=== PATIENT | male | born 1955 | race Caucasian/White ===

== ENCOUNTER 2023-12-21 14:55 | Emergency (ER) | payer MEDICARE, SELFPAY ==
--- NOTE | ~2023-12-21 | XR_ITS ---
EXAMINATION: XR wrist RT 2V DATE: 12/21/2023 15:05 INDICATION: Right wrist injury. Fall. TECHNIQUE: 2 views of right wrist were obtained. COMPARISON: None. FINDINGS: There is a comminuted fracture of distal radius with involvement of the distal articular grigsby rface and distal radioulnar joint. The main distal fracture fragment demonstrates impaction and dorsa l angulation. There is 11 degrees dorsal tilt of the distal articular surface. Ulnar styloid is intac t. There is severe osteoarthritis of triscaphe joint and first carpometacarpal joint. IMPRESSION: 1. Comminuted fracture of distal radius. 2. Polyarticular osteoarthritis. Reviewed, dictated and finalized at location A.
[2023-12-21 14:56] VITALS: BP 150/102; PULSE 93; RESP 16; TEMP 36.6; O2SAT 98
[2023-12-21] MEDS: HYDROcodone/acetaminophen (*CRX) 5-325 MG TABLET 1 TAB PO (15:57)
--- NOTE | 2023-12-21 16:22 | ED.FALL ---
HPI - Fall General Chief Complaint: Fall Stated Complaint: wrist injury Time Seen by Provider: 12/21/23 15:20 History of Present Illness HPI Narrative: Patient is a healthy 68-year-old male with no medical history here today after a fall with right wrist pain. He is right-hand dominant. He states that just prior to arrival he was on a stepstool, on the 2nd step when he slipped and fell backwards, falling on his outstretched right wrist to brace his fall. He denies any additional injuries. He noted immediate pain to his right wrist with pain with movement. He does note prior surgeries for thumb pain bilaterally which performed at [facility] several years ago. No prior fractures in this wrist. He did not take any medications prior to arrival. Denies any numbness in the hand. Related Data Allergies Allergy/AdvReac Type Severity Reaction Status Date / Time No Known Allergies Allergy Unverified 11/28/18 10:04 Review of Systems Review of Systems: All systems reviewed & are unremarkable except as noted in HPI and below Exam Narrative: GENERAL: Well-appearing, well-nourished, and in no acute distress. HEAD: Normocephalic, atraumatic. EYES: PERRLA and EOMI. ENT: Nares clear. Mucous membranes moist. NECK: Supple. CHEST: Clear to auscultation. No respiratory distress. HEART: Regular rate and rhythm. Normal peripheral pulses. ABDOMEN: Soft, nontender, nondistended. EXTREMITIES: Right shoulder atraumatic, right humerus atraumatic, right elbow nontender with normal range of motion. No tenderness throughout the forearm on the right side. Tenderness over the medial aspect of the right radius with edema both anteriorly and posteriorly. No obvious deformity. Normal radial pulse. Hand nontender with normal range of motion, normal capillary refill and normal sensation. SKIN: Warm, dry, no rash. NEURO: No focal deficits. Alert and oriented x3. PSYCH: Normal mood and affect. Course Course Emergency Course: Chart review performed, patient here with wrist pain after a fall. X-rays reviewed, comminuted distal radius fracture appreciated, images reviewed by myself, minimal displacement. Patient seen evaluated, nontoxic appearing, no tenting, neurovascularly intact. Minimally displaced distal radius fracture. Will place instructor tong splint, patient given dose of [place] here in the department. I did offer him pain medication however he already has Percocet at home from a dental procedure 2 weeks ago and will use this as prescribed. He prefers to follow-up with his established hand/ wrist surgeon at [facility], will give him on-call orthopedic surgery follow-up as well should he need it. Patient has unchanged neurovascular exam after splint application. The results of pertinent diagnostic studies and exam findings were discussed. The patient?s provisional diagnosis and plan of care were discussed with the patient and present family. The patient and/or present family expressed understanding of the diagnosis and plan. The nurse was instructed to provide written instructions and appropriate follow-up information. The patient understands their need and responsibility to obtain additional follow-up as instructed. The risks of medications administered and prescribed were discussed with the patient and family present. Vital Signs Vital signs: Vital Signs Temperature 97.8 F 12/21/23 14:56 Pulse Rate 93 12/21/23 14:56 Respiratory Rate 16 12/21/23 14:56 Blood Pressure 150/102 H 12/21/23 14:56 Pulse Oximetry 98 12/21/23 14:56 Temperature 97.8 F 12/21/23 14:56 Pulse Rate 93 12/21/23 14:56 Respiratory Rate 16 12/21/23 14:56 Blood Pressure 150/102 H 12/21/23 14:56 Pulse Oximetry 98 12/21/23 14:56 MDM - Fall Imaging Data Radiologist's impression: ITS Impressions Wrist X-Ray 12/21/23 15:27 IMPRESSION: 1. Comminuted fracture of distal radius. 2. Polyarticular osteoarthritis.
== END 2023-12-21 17:10 | disposition home or self-care (01) ==
PROVIDERS: Emergency Provider Student in an Organized Health Care Education/Training Program; PCP Registered Nurse
DX: S52.501A Unspecified fracture of the lower end of right radius, initial encounter for closed fracture (principal); W18.30XA Fall on same level, unspecified, initial encounter
CPT/HCPCS: 29125; 73100; 99284; A4565; A9270

== ENCOUNTER 2023-12-26 00:17 | Day surgery (SDC) | payer MEDICARE, SELFPAY ==
--- NOTE | 2023-12-25 10:28 | PC.NURSE ---
Report to the Outpatient Waiting Room, entrance under the green pavilion located off [facility], at time __0700 on date __12/26/23 . Planned Procedure Time: __0900 . Time changes happen often and if your time is changed the preop area will call you the afternoon before. - You and your visitor will be asked to self-screen and do not enter if you have any COVID symptoms. - A mask is optional within the hospital at this time. Patients may have clear liquids (water, carbonated beverages, clear teas, apple juice) until 3 hours prior to surgery( 0600) with a maximum of 20 ounces. - No food from midnight until time of surgery - Infants may have breast milk until 4 hours before surgery, formula 6 hours prior to surgery. - Children will be allowed to drink immediately following surgery. If applicable, please bring a bottle or sippy cup to assist with drinking. Juice, water, soda, and popsicles are readily available. For infants on formula, please bring formula the day of surgery. Pacifiers are allowed. Take the following medications with a SIP of water the morning of surgery: NONE DO NOT STOP ANY OF YOUR OTHER PRESCRIPTION MEDICATIONS PRIOR TO SURGERY ?EXCEPT THE FOLLOWING Medications to discontinue per physician NONE-SURGERY TOMORROW Date to take last dose Please no make-up, nail jordanian, hairspray, perfume, deodorant, or body powder the day of surgery. No jewelry (including any body piercings) or valuables the day of surgery, leave them at home. Please take a shower or bath the night before, or the morning of, surgery with an antibacterial soap. Wear comfortable, loose fitting clothing. Children are encouraged to wear pajamas. - Jewelry must be removed prior to entering the operating room. Rings and piercings that are not removed may be cut off. - The hospital will not accept responsibility for valuables. - Please leave all valuables, including medications, at home the day of surgery. If you are going home after surgery, a licensed sulky driver must drive you home. - NO public transportation without another adult if you receive anesthesia. - We recommend that an adult stay with you for 24 hours following discharge. - We also recommend that you do not drive, make important decision, drink alcoholic beverages, or take any drugs that were not prescribed by your health care provider for at least 24 hours after your discharge time. Follow any additional instructions given to you from your surgeon. If you or anyone in your household have experienced Covid symptoms in the past week, please notify your surgeon or the nurse liaison at the phone number below for possible testing. Telephone instructions given to __PT and asked if any additional questions and then verbalized understanding. Patient advised to call surgeon office or pre surgery nurse liaison [phone] if any additional questions.
[2023-12-25 10:32] VITALS: BMI 29.0
[2023-12-26] VITALS (8 sets, daily range): BP systolic 125–164; BP diastolic 66–88; PULSE 70–90; RESP 12–20; TEMP 36.2–36.3; O2SAT 94–99; BMI 31.1
--- NOTE | ~2023-12-26 | XR_ITS ---
EXAMINATION: XR surgery orthopedic DATE: 12/26/2023 08:58 INDICATION: Distal right radius fracture. TECHNIQUE: 6 intraoperative fluoroscopic views of right wrist were obtained. I was not present. Fluor oscopy exposure time was 11 seconds. COMPARISON: Right wrist radiographs 12/24/2023 FINDINGS: There is a comminuted fracture of distal radius status post open reduction internal fixatio n with volar plate and screws. The distal articular surface demonstrates 3 degrees dorsal angulation. There is mild osteoarthritis of triscaphe joint and first carpometacarpal joint. IMPRESSION: 1. Comminuted fracture of distal radius status post open reduction internal fixation. Reviewed, dictated and finalized at location A. IMPRESSION: 1. Comminuted fracture of distal radius status post open reduction internal fix ation.
--- NOTE | 2023-12-26 07:23 | WPDHPUPDATE1 ---
History and Physical Update Update Date/Time: 12/26/23 07:23 History and Physical has been reviewed, including an updated exam of the patient. There are NO changes in the patient's condition. Risks, benefits, and alternatives have been discussed and questions answered. Patient agrees to proceed with procedure.
[2023-12-26] MEDS: LACTATED RINGERS 1,000 ML 30 ML IV CONT ×2 (07:35→09:18)
--- NOTE | 2023-12-26 07:46 | ECG_ITS ---
Measurements Intervals [place] Rate: 72 P: 27 CA: 172 QRS: 12 QRSD: 93 T: 19 QT: 386 QTc: 424 Interpretive Statements SINUS RHYTHM NO PREVIOUS ECG AVAILABLE FOR COMPARISON Electronically Signed On 12-26-2023 11:04:38 CDT by Matt Betancourt M.D.
--- NOTE | 2023-12-26 07:48 | P.OP_ITS ---
Procedure Note - Detailed Date of Procedure 12/26/23 Pre-op Diagnosis Right Wrist Fracture Post-op Diagnosis Same Procedure Performed open reduction internal fixation right distal radius fracture, intra-articular, with fixation 4 fragments. Surgeon Reagan Chinchilla MD Committee Member 1St bilingual administrative assistant Anesthesia General Indications 68-year-old who fell on his right outstretched hand and sustained distal radius fracture with comminution and displacement. Presents for operative treatment. Description of Procedure After informed consent the operative extremity was marked in the preoperative holding area. Patient received intravenous antibiotics. Patient taken to the operating room where they underwent general anesthesia. Positioned supine on operating table. Time-out performed confirming the patient, patient's site of surgery and the plan. Right upper extremity prepped and draped in the usual sterile surgical fashion using a ChloraPrep skin solution. Hand and wrist exsanguinated and arm tourniquet inflated to 225 mmHg. Standard volar flexor carpi radialis incision utilized. Fifteen blade knife used to make longitudinal incision. Flexor carpi radialis tendon identified tendon sheath incised in line with skin incision. Tendon retracted to protect the neurovascular elements. Floor of the tendon sheath incised with a 15 blade knife. Flexor pollicis retracted medial. pronator quadratus then divided off the watershed line and reflected ulnarward to expose the distal radius and the fracture. Fracture was then reduced provisionally pinned. Image intensification confirm reduction. Fixation achieved with the distal radius volar plate. This was provisionally pinned into place and confirmed with image intensification. Fixation to the proximal fragment with a 3.5 mm screw. Distal fracture fixation achieved with 2.0 mm locking pegs and 2.0 mm fully threaded locking screws for the radial styloid. Fixation was then completed proximally with the remaining 3.5 mm screws. Final reduction of the fracture, alignment of the wrist joint and placement of the hardware verified with image intensification. Wound thoroughly irrigated with antibiotic solution. Pronator repaired with 3 0 Monocryl interrupted suture. Skin closed with interrupted subcutaneous 000 Monocryl interrupted suture and running 000 Monocryl subcuticular stitch. Local anesthetic with 0.5% Marcaine. Sterile dressing applied. Padded dressing and splint then applied. Tourniquet released and good capillary refill noted in the fingers and thumb. Patient awoke from anesthesia, extubated and taken to the recovery room in stable condition. All sponge and instrument counts correct at the end of case. Implants [employer] volar distal radius plate and screws Estimated Blood Loss 5 Tourniquet Time Total Tourniquet Time: 40 Drains No Packing No Pathology None sent Complications None Condition Stable Disposition PACU [facility] Billing Surgery - Charge Forward: Surgery Billing ([id number])
[2023-12-26] MEDS: KETOROLAC 15 MG/ML VIAL (*BKC) IV PUSH (07:52)
[2023-12-26] MEDS: ACETAMINOPHEN 500 MG TABLET 1000 MG PO (07:52)
--- NOTE | 2023-12-26 07:52 | WPDANESEPPF ---
Anes - Initial Pre Proc Eval Procedure: Operation Date: 12/26/23 09:00 Proposed Procedures p Open Reduction Internal Fixation Right Wrist Fracture - Reagan Chinchilla MD Date/Time: 12/26/23 07:52 Surgeon: Reagan Chinchilla MD Pre Op Diagnosis: Right Wrist Fracture Patient Data Age: 68 Gender: M Height: 1.85 m Weight: 99.8 kg Allergies Allergy/AdvReac Type Severity Reaction Status Date / Time No Known Allergies Allergy Unverified 12/25/23 10:19 Home Medications Medication Instructions Recorded Confirmed Type multivitamin 1 tablet PO DAILY 12/25/23 12/25/23 History hydrocodone 7.5 mg-acetaminophen 1 tablet PO Q6H PRN pain #30 tabs 12/26/23 Rx 325 mg tablet ondansetron 8 mg disintegrating 8 mg PO Q8H PRN nausea and 12/26/23 Rx tablet vomiting #10 tabs polyethylene glycol 3350 17 gram 17 g PO DAILY PRN constipation #14 12/26/23 Rx oral powder packet ea sennosides 8.6 mg-docusate sodium 1 tab-cap PO BID PRN constipation 12/26/23 Rx 50 mg tablet (Senna with Docusate #20 tabs Sodium) Patient hx anesthesia problems: none Family hx anesthesia problems: none Results Review: All pre-operative results and documents have been reviewed as part of the pre-operative evaluation. FORMERLY [facility], [facility]1983 Surgical History Surgical History (Updated 12/25/23 @ 12:39 by Doreen Coto CMA) History of surgery on wrist bilateral 2020 Family History Family History (Updated 12/25/23 @ 12:39 by Doreen Coto CMA) Unknown Pancreatic cancer Social History Social History (Updated 12/25/23 @ 12:40 by Doreen Coto CMA) Social History: caffeine use Smoking packs per day: 1 Smoking cigarettes per day: 20.0 Years smoked: 20 Smoking pack-years: 20.00 Smoking status: Former smoker Tobacco type: cigarettes Smoking end date: 09/23/88 Alcohol intake: current Drinks per week: 6 Living arrangements: with family Occupation/Education: retired Gender identity (if verbalized by the patient): Male Spiritual care concerns: No Anes - Eval Final PreProcedure Day of Procedure 12/26/23 07:52 Patient weight: overweight Heart: regular rate and rhythm Lungs: clear to auscultation Airway: Mallampati scale class II Neurological: alert and oriented Last oral intake: >/= 8 hours ASA classification: II Emergent: no Anesthetic plan: proceed Anesthesia type and monitoring: general and standard monitoring Results Review: All pre-operative results and documents have been reviewed as part of the pre-operative evaluation. Informed Consent: The patient's anesthetic plan and its attendant risks and benefits were discussed with the patient/family/POA. Questions were solicited and answers provided to the satisfaction of the patient/family/POA.
[2023-12-26] MEDS: ceFAZolin 2 GM/D5W 50 ML 2 GM/50 ML BAG IVPB (08:01)
[2023-12-26] MEDS: BUPivacaine HCL 0.5% 10 ML AMP 20 ML INFILTRATE (08:23)
== END 2023-12-26 10:49 | disposition home or self-care (01) ==
PROVIDERS: PCP Registered Nurse; Visit Provider Orthopaedic Surgery
PROC: (CPT 25575; principal; 2023-12-26 09:00)
DX: S52.571A Other intraarticular fracture of lower end of right radius, initial encounter for closed fracture (principal); Z79.891 Long term (current) use of opiate analgesic; Z98.890 Other specified postprocedural states; Z80.0 Family history of malignant neoplasm of digestive organs; Z87.891 Personal history of nicotine dependence; W08.XXXA Fall from other furniture, initial encounter
CPT/HCPCS: 25609; 93005; 99199; A9270; C1713; J0690; J1100; J1170; J1596; J1885; J2250; J2371; J2405; J2704; J3010; J7120